=== PATIENT | male | born 1990 | race Hispanic/Latino ===

== ENCOUNTER 2019-08-15 22:56 | Emergency (ER) | payer OTHER, MEDICAID, SELFPAY ==
[2019-08-15 23:10] VITALS: BP 124/70; PULSE 77; RESP 18; TEMP 36.9; O2SAT 98; BMI 25.0
--- NOTE | 2019-08-15 23:17 | ED_ITS ---
HPI - URI/Sore Throat General Chief Complaint: Upper Respiratory Symptoms Stated Complaint: cough,throat pain Time Seen by Provider: 08/15/19 23:00 Source: patient Mode of arrival: Family Vehicle Limitations: no limitations History of Present Illness HPI Narrative: 28-year-old male nonsmoker with noncontributory medical history presents with a chief complaint of 3-4 days of runny nose, sore throat, cough. He states for of his children have similar symptoms. He has not taken any vclb-awt-[id number] cough and cold medications. He has had a few episodes of post- tussive emesis. He denies any diarrhea or constipation. He denies any rash face or neck pain MD Complaint: cough, sore throat, rhinorrhea and nasal congestion Onset (ago): day(s) Duration: constant Severity: mild Relieving factors: nothing Exacerbating factors: nothing Description of mucous: clear Able to tolerate fluids by mouth: Yes Context: sick contacts Associated symptoms: chills, rhinorrhea, nasal congestion, sore throat, cough, nausea and vomiting Treatments prior to arrival: none Review of Systems Constitutional Constitutional: Denies chills, Denies fatigue, Denies fever(s), Denies frequent falls, Denies lethargy and Denies weakness Eyes Eyes: Denies change in vision, Denies eye discharge, Denies irritation and Denies loss of vision ENT Ears, Nose, Mouth, and Throat: Denies change in voice, Denies dizziness, Reports nasal congestion, Denies neck pain, Reports sore throat and Denies throat swelling Cardiovascular Cardiovascular: Denies chest pain, Denies irregular heart rhythm, Denies lightheadedness, Denies palpitations, Denies dyspnea, Denies dyspnea on exertion and Denies orthopnea Respiratory Respiratory: Reports cough, Denies dyspnea, Denies dyspnea on exertion and Denies wheezing Gastrointestinal Gastrointestinal: Denies abdominal pain, Denies change in bowel habits, Denies diarrhea, Denies nausea and Denies vomiting Genitourinary Genitourinary: Denies hematuria, Denies flank pain, Denies urinary incontinence and Denies urinary urgency Musculoskeletal Musculoskeletal: Denies back pain, Denies muscle weakness, Denies neck pain, Denies numbness and Denies tingling Integumentary/Breasts Skin/Breast: Denies pruritus, Denies erythema, Denies rash and Denies wounds Neurologic Neurologic: Denies behavioral changes, Denies confusion, Denies dizziness, Denies frequent falls, Denies loss of vision, Denies numbness, Denies tingling and Denies weakness Psychiatric Psychiatric: Denies anxiety, Denies behavioral changes, Denies confusion, Denies depression, Denies homicidal ideation and Denies suicidal ideation Endocrine Endocrine: Denies fatigue, Denies flushing and Denies palpitations Hematologic/Lymphatic Hematologic/Lymphatic: Denies easy bruising Allergic/Immunologic Allergic/Immunologic: Denies urticaria, Denies throat swelling and Denies wheezing Patient History Social History Smoking Status: Never smoker Smoking Status: Never smoker alcohol intake frequency: a few times a month Alcohol type: beer Substance Use Type: does not use Exam Narrative Exam Narrative: GENERAL: [28] year old patient appears stated age. Well- nourished, well-developed patient, in mild distress. HEAD: Atraumatic. Normocephalic. EYES: Pupils equal round and reactive. Extraocular motions intact. No scleral icterus. No injection or drainage. ENT: Clear postnasal drip Nose without bleeding, purulent drainage. Throat without erythema, tonsillar hypertrophy or exudate. Airway patent. NECK: Trachea midline. Non tender CARDIOVASCULAR: Regular rate and rhythm without murmurs, gallops, or rubs. RESPIRATORY: Clear to auscultation. Breath sounds equal bilaterally. No wheezes, rales, or rhonchi. GASTROINTESTINAL: Abdomen soft, non-tender, nondistended. EXTREMITIES: No edema or joint tenderness. BACK: Nontender without deformity or crepitance. No flank tenderness. NEURO: AOx3. SKIN: No rash or erythema of visible areas Initial Vital Signs Initial Vital Signs: Vital Signs Temperature 98.4 F 08/15/19 23:10 Pulse Rate 77 08/15/19 23:10 Respiratory Rate 18 08/15/19 23:10 Blood Pressure 124/70 08/15/19 23:10 Pulse Oximetry 98 08/15/19 23:10 Course Orders Ordered: ED Orders 08/15/19 23:15 Influenza A & B (PCR) Stat Discontinued Medications Albuterol (Ventolin Hfa) 1 puff INH NOW ONE Stop: 08/15/19 23:29 Last Admin: 08/15/19 23:37 Dose: 90 mcg Documented by: ROSELINE Vital Signs Vital signs: Vital Signs - 8 hr 08/15/19 23:10 08/15/19 23:43 Temperature 98.4 F Pulse Rate 77 Respiratory Rate 18 Blood Pressure 124/70 Pulse Oximetry 98 99 MDM - URI/Sore Throat Lab Data Labs: Lab Results 08/15/19 Range/Units 23:15 Influenza A (RT-PCR) Flu a negative (NEGATIVE) Influenza B (RT-PCR) Flu b negative (NEGATIVE) Discharge Plan Departure Patient Disposition: Home Clinical Impression: Upper respiratory infection Qualifiers: URI type: unspecified viral URI Qualified Code(s): J06.9 - Acute upper respiratory infection, unspecified Discharge Date/Time: 08/16/19 00:06 Activity Restrictions/Additional Instructions: *You have been diagnosed with [ acute viral upper respiratory infection ] *What to do: *Take medications as directed: over the counter cough and cold medications *Follow up with your primary care provider in 2-3 days, call for an appointment. Let them know you were seen in the Emergency Department and that we ask that you be seen in follow up *Return to ER if you should have any new, worsening or concerning symptoms
[2019-08-15] MEDS: ALBUTEROL HFA 60 PUFF/8 GM INH INH (23:37)
[2019-08-15 23:43] VITALS: O2SAT 99
[2019-08-15 23:51] LABS: Influenza A - CEPHEID Flu A NEGATIVE (NEGATIVE); Influenza B - CEPHEID Flu B NEGATIVE (NEGATIVE)
== END 2019-08-16 00:06 | disposition home or self-care (01) ==
PROVIDERS: Emergency Provider Emergency Medicine
DX: J06.9 Acute upper respiratory infection, unspecified (principal)
CPT/HCPCS: 87502; 94640; 99281; 99282

== ENCOUNTER 2020-07-31 17:11 | Emergency (ER) | payer OTHER, MEDICAID, SELFPAY ==
[2020-07-31 17:15] VITALS: BP 117/65; PULSE 94; RESP 18; TEMP 37.4; O2SAT 97; BMI 22.6
[2020-07-31] MEDS: IBUPROFEN 400 MG TABLET PO (18:55)
[2020-07-31] MEDS: ACETAMINOPHEN 325 MG TABLET 650 MG PO (18:56)
[2020-07-31 19:06] LABS: COVID19 -Nasal RAPID Negative (Negative)
--- NOTE | 2020-07-31 19:28 | ED_ITS ---
HPI - URI/Sore Throat <JENNIFER Montalvo - Last Filed: 07/31/20 19:40> General Chief Complaint: Upper Respiratory Symptoms Stated Complaint: fever, cough, chills since yesterday Time Seen by Provider: 07/31/20 17:25 Source: patient Mode of arrival: Ambulatory Limitations: no limitations History of Present Illness HPI Narrative: This is a 29-year-old male, nonsmoker, who past medical history as asthma and uses inhaler as needed presents to ED with chief complain of chills, sore throat, right-sided neck lymph node swelling and pain since yesterday. Patient reports pain increases with swallowing. Patient reports occasional white mucousy cough and no changes in intermittent shortness of breath for last 2 months which she contributes to asthma, generalized body aches, intermittent mild nausea, decreased taste. Patient denies fever, runny nose, diarrhea, chest pain, abdominal pain. Patient denies known exposure to COVID infection but is concerned. Patient had not received flu immunizations. Related Data Home Medications Medication Instructions Recorded Confirmed albuterol PRN PRN 07/31/20 Review of Systems <JENNIFER Montalvo - Last Filed: 07/31/20 19:40> Review of Systems Narrative: General: See HPI HEENT: See HPI Respiratory: See HPI Cardiovascular: Denies chest pain, palpitations, orthopnea, edema. Gastrointestinal: Denies (+) intermittent nausea, vomiting, abdominal pain, diarrhea, constipation, melena. : Denies dysuria, frequency, incontinence, hematuria, urinary retention. Musculoskeletal: Reports generalized body aches. Denies weakness, joint pain or bony pain. Skin: Denies rash, skin lesions, or other. Neurologic: Denies weakness, headache, numbness, change in speech, confusion, seizures, incoordination. Psychiatric: No concerning psychosocial issues. 12-point review of systems is negative except for those stated above. Patient History <JENNIFER Montalvo - Last Filed: 07/31/20 19:40> Medical History Asthma Social History Smoking Status: Never smoker Smoking Status: Never smoker alcohol intake frequency: a few times a month Alcohol type: beer Substance Use Type: does not use Exam <Jasper CazaresJENNIFER Nayak - Last Filed: 07/31/20 19:40> Narrative Exam Narrative: General appearance: well developed, well nourished, in no acute distress. Head: normocephalic, atraumatic, no scalp lesions, non-tender. ENT: Bilateral auditory canals and tympanic membranes clear. Hearing grossly intact. Nose without bleeding, purulent discharge, septal hematoma or deviation. Turbinate without erythema or swelling. Facial sinuses nontender to palpate. Mucous membrane moist, no mucosal lesion. Throat with moderate tonsillar hypertrophy and small exudate worsen right-sided. Uvula in midline, airway patent. Neck/Thyroid: neck supple, full range of motion, no visible masses or meningeal signs. No JVD. Right anterior cervical lymph nodes adenopathy. Skin: no suspicious rashes, lesions over visible areas. Warm and dry and appropriate color for ethnicity. Heart: no clubbing, no cyanosis, no edema. S1 and S2 normal. RRR w/o murmurs, clicks, or bruits. Lungs: Breathing even and unlabored. No stridor. No accessory muscles used. Able to speak in full sentences. Chest: normal shape and expansion. Abdomen: non-obese, non-distended. Neurologic: alert and oriented. 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 Psych: good eye contact, normal affect. Initial Vital Signs Initial Vital Signs: Vital Signs Temperature 99.4 F 07/31/20 17:15 Pulse Rate 94 H 07/31/20 17:15 Respiratory Rate 18 07/31/20 17:15 Blood Pressure 117/65 07/31/20 17:15 Pulse Oximetry 97 07/31/20 17:15 <Jamari Spicer DO - Last Filed: 08/01/20 01:38> Initial Vital Signs Initial Vital Signs: Vital Signs Temperature 99.4 F 07/31/20 17:15 Pulse Rate 94 H 07/31/20 17:15 Respiratory Rate 18 07/31/20 17:15 Blood Pressure 117/65 07/31/20 17:15 Pulse Oximetry 97 07/31/20 17:15 Scores <Jasper CazaresangLindaJENNIFER mccarty - Last Filed: 07/31/20 19:40> GCS Steedman coma scale eye opening: Spontaneous Victorino coma scale verbal response: Orientated Victorino coma scale motor response: Obey commands Steedman coma scale total score: 15 Course <JENNIFER Montalvo - Last Filed: 07/31/20 19:40> Orders Ordered: ED Orders 07/31/20 17:20 COVID19 Stat Throat Culture Stat Discontinued Medications Acetaminophen (Acetaminophen 325 Mg Tablet) 650 mg PO NOW ONE Stop: 07/31/20 17:59 Last Admin: 07/31/20 18:56 Dose: 650 mg Documented by: GIGI Ibuprofen (Ibuprofen 400 Mg Tablet) 400 mg PO NOW ONE Stop: 07/31/20 17:59 Last Admin: 07/31/20 18:55 Dose: 400 mg Documented by: GIGI Vital Signs Vital signs: Vital Signs - 8 hr 07/31/20 19:39 Pulse Rate 81 Blood Pressure 107/66 Pulse Oximetry 98 <Jamari Spicer DO - Last Filed: 08/01/20 01:38> Orders Ordered: ED Orders 07/31/20 17:20 COVID19 Stat Throat Culture Stat Discontinued Medications Acetaminophen (Acetaminophen 325 Mg Tablet) 650 mg PO NOW ONE Stop: 07/31/20 17:59 Last Admin: 07/31/20 18:56 Dose: 650 mg Documented by: GIGI Ibuprofen (Ibuprofen 400 Mg Tablet) 400 mg PO NOW ONE Stop: 07/31/20 17:59 Last Admin: 07/31/20 18:55 Dose: 400 mg Documented by: GIGI Vital Signs Vital signs: Vital Signs - 8 hr 07/31/20 19:39 Pulse Rate 81 Blood Pressure 107/66 Pulse Oximetry 98 MDM - URI/Sore Throat <JENNIFER Montalvo - Last Filed: 07/31/20 19:40> Differential Diagnosis Differential diagnosis: Likely upper respiratory infection, viral infection, pharyngitis and other (Strep throat infection, COVID-19) Medical Records Attestation: I reviewed the patient's medical records. Lab Data Attestation: I reviewed the patient's lab results. Labs: Lab Results 07/31/20 Range/Units 17:20 COVID-19 PCR Negative (Negative) Point of Care Testing Rapid Strep A Negative MDM Narrative Medical decision making narrative: COVID-19 was negative. Strep POC test was negative. Throat culture is pending. Patient is nontoxic appearing. Afebrile with within normal vital signs. Throat exam appreciated mild erythema with exudate worsen right-sided and right anterior cervical lymphadenopathy. Will treat patient as viral pharyngitis and advised to use [id number] Tylenol and Motrin as needed and hydrate adequately. Patient advise warm salt water gargle as needed for discomfort. Will contact patient if he requires antibiotic medications per stool culture result. Return precautions discussed with patient and he verbalized understanding in agreement with treatment plan. <Jamari Spicer DO - Last Filed: 08/01/20 01:38> Lab Data Labs: Lab Results 07/31/20 Range/Units 17:20 COVID-19 PCR Negative (Negative) Point of Care Testing Rapid Strep A Negative Discharge Plan Departure Patient Disposition: Home Clinical Impression: Pharyngitis Qualifiers: Pharyngitis/tonsillitis etiology: unspecified etiology Qualified Code(s): J02.9 - Acute pharyngitis, unspecified Instructions: DI for Pharyngitis/Tonsillopharyngitis -- Adult Activity Restrictions/Additional Instructions: You have been diagnosed with [pharyngitis/tonsillitis. Strep throat swab was negative. COVID test was negative. Throat culture is pending.]. What to do: *Take your medications as directed. You can take [id number] Tylenol and or Motrin as needed for discomfort. Tylenol 650-1000 mg up to 3 times a day as needed for pain and fever. Motrin 400-600 mg up to 3 times a day as needed for pain, fever with food to decrease GI irritation. You can use warm salt water gargle for discomfort. *Follow up with your primary care provider in 2-3 days, call for an appointment. Let them know you were seen in the ED and that we asked you to be seen in follow up. *Return to ED if you have any new, worsening, or concerning symptoms, such as [worsening pain, chest pain, breathing difficulty, difficulty with swallowing or hydration, unusual rashes, or any acute concerns. Please continue with social distancing and good hand hygiene.]. Prescriptions: No Action albuterol PRN PRN (Reason: Shortness Of Breath) RF: 0 <Jamari Spicer DO - Last Filed: 08/01/20 01:38> Cosign ED Attending Cosignature Attestation: I was immediately available in the department for consultation. This documentation has been reviewed and I agree with assessment and plan. Supervised by Jamari Spicer DO
[2020-07-31 19:39] VITALS: BP 107/66; PULSE 81; O2SAT 98
== END 2020-07-31 19:39 | disposition home or self-care (01) ==
PROVIDERS: Emergency Provider Nurse Practitioner Family
DX: J02.9 Acute pharyngitis, unspecified (principal); J45.909 Unspecified asthma, uncomplicated
CPT/HCPCS: 87070; 87635; 87880; 99281; 99282

== ENCOUNTER 2021-04-08 17:08 | Emergency (ER) | payer OTHER, MEDICAID, SELFPAY ==
[2021-04-08 17:17] VITALS: BP 121/70; PULSE 61; RESP 20; TEMP 36.9; O2SAT 100
--- NOTE | 2021-04-08 17:20 | DI.RAD.S_ITS ---
PROCEDURE: XR CHEST 1V INDICATIONS: chest pain TECHNIQUE: One view of the chest was acquired. COMPARISON: None. FINDINGS: Surgical changes and devices: None. Lungs and pleura: Lungs are clear. No pleural effusions or pneumothorax. Mediastinum: Mediastinal contours appear normal. Heart size is normal. Bones and chest wall: No suspicious bony lesions. Overlying soft tissues appear unremarkable. IMPRESSION: No acute cardiopulmonary pathology. Dictated by: Jc Rai M.D. on 04/08/2021 at 18:00 Approved by: Jc Rai M.D. on 04/08/2021 at 18:00
[2021-04-08 17:52] LABS: Add Manual Diff / Slide Review NO; Basophils Absolute Auto 100 /uL (0-100); Eosinophils Absolute Auto 100 /uL (0-450); Eosinophils Percent Auto 0.7 % (2-4); Hematocrit 44.6 % (41-53); Hemoglobin 15.2 g/dL (13.5-17.5); Lymphocytes Absolute Auto 3400 /uL (1100-4500); Lymphocytes Percent Auto 41.6 % (25-40); Mean Corpuscular Volume 85.2 fL (80-100); Monocytes Absolute Auto 700 /uL (0-900); Monocytes Percent Auto 8.6 % (3-14); Neutrophils Absolute Auto 3900 /uL (1500-7000); Neutrophils Percent Auto 48.1 % (50-75); Platelet Count 227 X10^3/uL (150-400); Red Blood Cell Count 5.23 X10^6/uL (4.5-5.9); Red Cell Distribution Width 13.6 % (11.6-14.8); White Blood Cell Count 8.1 X10^3/uL (4.5-11.0)
[2021-04-08 17:58] LABS: Alanine Aminotransferase 17 IU/L (<50); Albumin 4.6 g/dL (3.5-5.0); Albumin Globulin Ratio 1.5 (1.0-2.8); Alkaline Phosphatase 43 U/L (38-126); Aspartate Aminotransferase 29 IU/L (17-59); BUN Creatinine Ratio 22.1 (6-22); Bilirubin Total 0.8 mg/dL (0.2-1.3); Blood Urea Nitrogen 19 mg/dL (9-20); Calcium 9.7 mg/dL (8.4-10.2); Carbon Dioxide 27 mmol/L (22-32); Chloride 104 mmol/L (98-107); Creatine Kinase 109 U/L (55-170); Estimated Glomerular Filt Rate > 60.0 mL/min (>60); Globulin 3.1 g/dL (1.7-4.1); Glucose 88 mg/dL (70-100); HEMOLYSIS < 15 (0-50); Lipase 32 U/L (23-300); Potassium 3.9 mmol/L (3.4-5.1); Sodium 140 mmol/L (137-145); Total Protein 7.7 g/dL (6.3-8.2)
[2021-04-08 18:10] LABS: Troponin I < 0.012 ng/mL (0.01-0.034)
[2021-04-08 18:13] LABS: CKMB % Relative Index 0.4 % (1.5-5.0); Creatine Kinase MB 0.41 ng/mL (<2.37)
--- NOTE | 2021-04-08 19:03 | PC.NURSE ---
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 progressed to chest pain this afternoon with numbness and tingling down arm. radial pulses regular. EKG obtained and labs drawn. CXR obtained. lungs clear. slight pain to palpation in RUC. no PMH.
[2021-04-08 20:09] LABS: COVID19 -Nasal RAPID Negative (Negative)
--- NOTE | 2021-04-08 20:17 | ED_ITS ---
HPI - Chest Pain General Chief Complaint: Chest Pain Stated Complaint: dizzy,chest pain into arm, burning Time Seen by Provider: 04/08/21 18:04 Source: patient Mode of arrival: Ambulatory History of Present Illness HPI narrative: 30-year-old gentleman with no significant medical history presents with 3-4 days of right-sided chest pain shoulder pain intermittent throughout the day. 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 He notices that he is also having episodes of dizziness that seemed to be worse when he stands. It has been quite warm recently and he is wondering if that is related to the temperature. He has been trying to drink more fluids recently. He has no complaints of orthopnea, no exertional dyspnea, no fevers, cough, chills, abdominal pain, vomiting, diarrhea, rashes, tinnitus or headache. Related Data Home Medications Medication Instructions Recorded Confirmed albuterol PRN PRN 07/31/20 Review of Systems Review of Systems Narrative: Remainder of complete review of systems is otherwise unremarkable except for that included in the HPI. Patient History Medical History Asthma Social History Smoking Status: Never smoker Smoking Status: Never smoker alcohol intake frequency: a few times a month Alcohol type: beer Substance Use Type: does not use Exam Narrative Exam Narrative: General: Healthy appearing, in no acute distress. Able to give a complete and coherent history. Well-nourished well-developed HEENT: Moist mucous membranes, normal sclera with reactive pupils, Chest: Minor tenderness along the anterior medial pectoralis muscle Respiratory: Lungs are clear to auscultation, no wheezing no rales no rhonchi. Full and symmetrical air movement Cardiac: Regular rate and rhythm no murmurs no bruits Abdomen: Soft, nontender, good bowel tones, no flank pain Skin: Warm and dry, no rashes Neurologic: Grossly neurologically intact with no obvious asymmetries or abnormalities Extremities: No trauma, well perfused Psych: Cooperative, appropriate insight and affect Initial Vital Signs Initial Vital Signs: Vital Signs Temperature 98.5 F 04/08/21 17:17 Pulse Rate 61 04/08/21 17:17 Respiratory Rate 20 04/08/21 17:17 Blood Pressure 121/70 04/08/21 17:17 Pulse Oximetry 100 04/08/21 17:17 Course Orders Ordered: ED Orders 04/08/21 17:20 XR chest 1V Stat EKG-12 Lead Stat 04/08/21 17:36 Complete Blood Count AUTO DIFF Stat Comprehensive Metabolic Panel Stat Lipase Stat Troponin & CK Cardiac Panel Stat 04/08/21 19:40 COVID19 -Nasal swab/Pre-Proc Stat Vital Signs Vital signs: Vital Signs - 8 hr 04/08/21 17:17 04/08/21 20:52 Temperature 98.5 F Pulse Rate 61 62 Respiratory Rate 20 Blood Pressure 121/70 120/73 Pulse Oximetry 100 100 MDM - Chest Pain Lab Data Result diagrams: 04/08/21 17:36 04/08/21 17:36 Labs: Lab Results 04/08/21 04/08/21 04/08/21 Range/Units 17:36 17:36 19:40 WBC 8.1 (4.5-11.0) X10^3/uL RBC 5.23 (4.5-5.9) X10^6/uL Hgb 15.2 (13.5-17.5) g/dL Hct 44.6 (41-53) % MCV 85.2 (80-100) fL MCH 29.0 (26-34) PG MCHC 34.0 (30-36) % RDW 13.6 (11.6-14.8) % Plt Count 227 (150-400) X10^3/uL Neut % (Auto) 48.1 L (50-75) % Lymph % (Auto) 41.6 H (25-40) % [place] % (Auto) 8.6 (3-14) % Eos % (Auto) 0.7 L (2-4) % Baso % (Auto) 1.0 (0-2) % Neut # (Auto) 3900 (6694-2493) /uL Lymph # (Auto) 3400 (5029-2959) /uL [place] # (Auto) 700 (0-900) /uL Eos # (Auto) 100 (0-450) /uL Baso # (Auto) 100 (0-100) /uL Sodium 140 (137-145) mmol/L Potassium 3.9 (3.4-5.1) mmol/L Chloride 104 (98-107) mmol/L Carbon Dioxide 27 (22-32) mmol/L BUN 19 (9-20) mg/dL Creatinine 0.86 (0.66-1.25) mg/dL Estimated GFR > 60.0 (>60) mL/min BUN/Creatinine Ratio 22.1 H (6-22) Glucose 88 (70-100) mg/dL Calcium 9.7 (8.4-10.2) mg/dL Total Bilirubin 0.8 (0.2-1.3) mg/dL AST 29 (17-59) IU/L ALT 17 (<50) IU/L Alkaline Phosphatase 43 (38-126) U/L Total Creatine Kinase 109 (55-170) U/L CK-MB (CK-2) 0.41 (<2.37) ng/mL CK-MB (CK-2) Rel Index 0.4 L (1.5-5.0) % Troponin I < 0.012 (0.01-0.034) ng/mL Total Protein 7.7 (6.3-8.2) g/dL Albumin 4.6 (3.5-5.0) g/dL Globulin 3.1 (1.7-4.1) g/dL Albumin/Globulin Ratio 1.5 (1.0-2.8) Lipase 32 (23-300) U/L SARS-CoV-2 (PCR) Negative (Negative) Imaging Data Chest x-ray: Radiologist's Impression: FINDINGS: Surgical changes and devices: None. Lungs and pleura: Lungs are clear. No pleural effusions or pneumothorax. Mediastinum: Mediastinal contours appear normal. Heart size is normal. Bones and chest wall: No suspicious bony lesions. Overlying soft tissues appear unremarkable. IMPRESSION: No acute cardiopulmonary pathology. Dictated by: Jc Rai M.D. on 04/08/2021 at 18:00 ECG Data Interpretation: Sinus rhythm at a rate of 63 Normal intervals normal axis No acute ischemic changes MDM Narrative Medical decision making narrative: Labs, EKG, chest x-ray are all reassuring. With his work outside of suspect dizziness is related to orthostatic hypotension. There is no evidence of true vertigo, no ear with abnormalities and no headaches or other neurologic findings to suggest significant brain pathology. Regarding the anterior chest wall pain I do not think there is a cardiac etiology. Chest x-ray does not suggest pneumothorax. No evidence of infection. 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 Reassurance is given and questions answered. He is safe for home discharge Discharge Plan Departure Patient Disposition: Home Clinical Impression: Chest pain, musculoskeletal, Orthostatic hypotension Instructions: DI for Dehydration -- Adult, DI for Musculoskeletal Pain Activity Restrictions/Additional Instructions: Thank you for coming in today Your x-ray, EKG and lab work were all very reassuring there is no suggestion of infection including COVID virus, kidney failure, heart attack or heart attack like syndrome, collapsed lung stroke or inner ear infection. Using 400 mg of ibuprofen (2 jobz-odj-fqbmykw pills) and 1 Tylenol every 6 hours can be very helpful in controlling pain, including the right-sided musculoskeletal chest pain. With your description of the dizziness, I do believe that is related to being mildly dehydrated and the heat. I would encourage you to make a point of drinking a large glass of water before you head out for work during the day and make sure that you continue drinking throughout the day. The goal is to have your urine a very light yellow. If you have new or worsening symptoms please feel free to return to the ER Prescriptions: No Action albuterol PRN PRN (Reason: Shortness Of Breath) RF: 0
[2021-04-08 20:52] VITALS: BP 120/73; PULSE 62; O2SAT 100
== END 2021-04-08 21:01 | disposition home or self-care (01) ==
PROVIDERS: Emergency Medicine; Emergency Provider Emergency Medicine
DX: R07.9 Chest pain, unspecified (principal); I95.1 Orthostatic hypotension; R42 Dizziness and giddiness; Z20.822 Contact with and (suspected) exposure to COVID-19
CPT/HCPCS: 36415; 71045; 80053; 82550; 82553; 83690; 84484; 85025; 87635; 93005; 93010; 99284; C9803